=== PATIENT | female | born 2000 | race African-American/Black ===

== ENCOUNTER 2022-12-09 00:12 | Emergency (ER) | payer MEDICAID ==
[~2022-12-09] VITALS: Ht 172.7 cm; Wt 75.0 kg
[2022-12-09 00:31] VITALS: BP 127/82
[2022-12-09] MEDS ORDERED: ACET-2708 MT (02:39)
[2022-12-09] MEDS ORDERED: ACETAMINOPHEN 325MG TABLET PO ONE (02:45)
== END 2022-12-09 03:03 | disposition home or self-care (01) ==
LOC: ER 00:12
DX: M25.522 Pain in left elbow (principal)
CPT/HCPCS: 73080; 99283; A4565